=== PATIENT | male | born 2005 | race Caucasian/White ===

== ENCOUNTER 2025-06-27 14:04 | Emergency (ER) | payer MEDICAID ==
[~2025-06-27] VITALS: Ht 175.3 cm; Wt 91.0 kg
[2025-06-27 14:10] VITALS: BP 119/85; PULSE 71; RESP 14; TEMP 37.4; O2SAT 99
== END 2025-06-27 18:16 | disposition left against medical advice (07) ==
LOC: ER 14:04
DX: M54.50 Low back pain, unspecified (principal)
CPT/HCPCS: 99281; Z7610